=== PATIENT | male | born 1955 | race African-American/Black ===

== ENCOUNTER 2018-03-18 11:38 | Inpatient (IN) | payer MEDICARE, BC ==
[~2018-03-18] VITALS: Ht 193 cm; Wt 52.6 kg
[2018-03-18] MEDS ORDERED: ALBUTEROL (0.083%) 2.5MG/3ML NEB HHN STA (12:25)
[2018-03-18] MEDS ORDERED: ALBUTEROL (0.083%) 2.5MG/3ML NEB ONE (12:48)
[2018-03-18 12:57] LABS: BASOPHILS % 0.3 % (0.0-2.0); EOSINOPHILS % 0.4 % (0.0-5.0); HEMATOCRIT. 42.6 % (42.0-52.0); HEMOGLOBIN. 14.2 g/dL (14.0-18.0); LYMPHOCYTES % 15.6 % (20.0-50.0); MEAN CORPUSCULAR HEMOGLOBIN 29.2 pg (28.0-32.0); MEAN CORPUSCULAR VOLUME 87.8 fL (80.0-94.0); MEAN PLATELET VOLUME 9.2 fl (7.4-10.4); MONOCYTES % 4.9 % (2.0-8.0); NEUTROPHILS % 78.8 % (40.0-76.0); PLATELET 235 x1000/uL (130-400); RED BLOOD CELL COUNT 4.85 mill/uL (4.7-6.1); RED CELL DISTRIBUTION WIDTH 13.5 % (11.6-14.6)
[2018-03-18 13:05] LABS: CHLORIDE 106 mEq/L (98-107)
[2018-03-18 13:18] LABS: PROTHROMBIN TIME 10.5 sec (9.1-11.1)
[2018-03-18] MEDS ORDERED: ASPIRIN 325MG EC TABLET PO ONE (13:45)
[2018-03-18] MEDS: NITROGLYCERIN OINT 1GM/INCH UDPKT TD SCH ×2 (18:30→22:00)
[2018-03-18] MEDS: FUROSEMIDE 40MG/4ML VIAL IVP SCH (18:37)
[2018-03-18 21:00] VITALS: BP 129/77
[2018-03-18] MEDS: ATORVASTATIN CALCIUM 10MG TABLET PO SCH (21:00)
[2018-03-18] MEDS ORDERED: METF-416 MT (21:06)
[2018-03-18] MEDS ORDERED: ASA5EC MT (21:06)
[2018-03-18] MEDS ORDERED: AMLO10TA80 MT (21:06)
[2018-03-18] MEDS ORDERED: AM500 MT (21:06)
[2018-03-18] MEDS ORDERED: FURO40TA5 MT (21:06)
[2018-03-18] MEDS ORDERED: VALS320T16 MT (21:06)
[2018-03-18] MEDS ORDERED: GLYB5TAB7 MT (21:06)
[2018-03-18 21:20] VITALS: BP 129/72
[2018-03-18] MEDS ORDERED: POTA99TA15 PO (22:00)
[2018-03-19] VITALS: BP 142/82
[2018-03-19] MEDS ORDERED: AZITHROMYCIN 500 MG in DEXT 5% WATER 250 ML IV SCH (03:30)
[2018-03-19] MEDS ORDERED: CEFTRIAXONE 1,000 MG in DEXTROSE 5% WATER 50 ML IV SCH (03:30)
[2018-03-19 04:00] VITALS: BP 123/78
[2018-03-19] MEDS: CEFTRIAXONE 1 G PREMIX 50 ML IV SCH (05:32)
[2018-03-19] MEDS: NITROGLYCERIN OINT 1GM/INCH UDPKT TD SCH ×3 (05:35→21:54)
[2018-03-19] MEDS: METFORMIN HCL 500MG TABLET PO SCH ×2 (06:13→18:32)
[2018-03-19 08:00] VITALS: BP 136/93
[2018-03-19 08:37] LABS: BASOPHILS % 0.7 % (0.0-2.0); EOSINOPHILS % 1.6 % (0.0-5.0); HEMATOCRIT. 41.5 % (42.0-52.0); HEMOGLOBIN. 13.9 g/dL (14.0-18.0); LYMPHOCYTES % 18.4 % (20.0-50.0); MEAN CORPUSCULAR VOLUME 86.7 fL (80.0-94.0); MEAN PLATELET VOLUME 9.3 fl (7.4-10.4); NEUTROPHILS % 72.3 % (40.0-76.0); PLATELET 235 x1000/uL (130-400); RED BLOOD CELL COUNT 4.79 mill/uL (4.7-6.1); RED CELL DISTRIBUTION WIDTH 13.6 % (11.6-14.6)
[2018-03-19] MEDS: ASPIRIN 81MG EC TABLET PO SCH (08:39)
[2018-03-19] MEDS: FUROSEMIDE 40MG/4ML VIAL IVP SCH (08:39)
[2018-03-19] MEDS: ENOXAPARIN 30MG/0.3ML SYR SUBCUT SCH ×2 (08:40→21:53)
[2018-03-19] MEDS: AMLODIPINE 5MG TABLET PO SCH (08:40)
[2018-03-19] MEDS: POTASSIUM CHLORIDE 10MEQ TABLET SR PO SCH (08:40)
[2018-03-19 09:02] LABS: CHLORIDE 107 mEq/L (98-107)
[2018-03-19] MEDS: AZITHROMYCIN 500 MG in DEXT 5% WATER 250 ML IV SCH (10:52)
[2018-03-19 14:00] VITALS: BP 113/74
[2018-03-19] MEDS ORDERED: DEXTROSE 50% WATER 50ML SYRINGE IV PRN (17:45)
[2018-03-19] MEDS: FUROSEMIDE 100MG/10ML VIAL IVP SCH (18:32)
[2018-03-19 20:00] VITALS: BP_SYST 126; BP_SYST 132; BP_DIAS 72; BP_DIAS 87
[2018-03-19] MEDS: INSULIN LISPRO 100 UNITS/ML SUBCUT SCH (21:00)
[2018-03-19] MEDS: ATORVASTATIN CALCIUM 10MG TABLET PO SCH (21:54)
[2018-03-19] MEDS: BLOOD SUGAR DIAGNOSTIC STRIP TEST SCH (21:55)
[2018-03-20] VITALS (7 sets, daily range): BP systolic 110–132; BP diastolic 66–90
[2018-03-20] MEDS: CEFTRIAXONE 1 G PREMIX 50 ML IV SCH (04:34)
[2018-03-20] MEDS: NITROGLYCERIN OINT 1GM/INCH UDPKT TD SCH ×3 (04:40→22:32)
[2018-03-20] MEDS: BLOOD SUGAR DIAGNOSTIC STRIP TEST SCH ×4 (04:42→21:00)
[2018-03-20 06:47] LABS: BASOPHILS % 0.7 % (0.0-2.0); HEMATOCRIT. 41.1 % (42.0-52.0); HEMOGLOBIN. 13.9 g/dL (14.0-18.0); LYMPHOCYTES % 27.2 % (20.0-50.0); MEAN CORPUSCULAR HEMOGLOBIN 29.4 pg (28.0-32.0); MEAN CORPUSCULAR VOLUME 87.3 fL (80.0-94.0); MEAN PLATELET VOLUME 9.3 fl (7.4-10.4); MONOCYTES % 8.2 % (2.0-8.0); NEUTROPHILS % 61.9 % (40.0-76.0); PLATELET 244 x1000/uL (130-400); RED BLOOD CELL COUNT 4.71 mill/uL (4.7-6.1); RED CELL DISTRIBUTION WIDTH 13.4 % (11.6-14.6)
[2018-03-20 07:11] LABS: CHLORIDE 107 mEq/L (98-107)
[2018-03-20] MEDS: INSULIN LISPRO 100 UNITS/ML SUBCUT SCH ×4 (07:40→22:45)
[2018-03-20] MEDS: METFORMIN HCL 500MG TABLET PO SCH ×2 (08:33→17:25)
[2018-03-20] MEDS: ASPIRIN 81MG EC TABLET PO SCH (08:33)
[2018-03-20] MEDS: AMLODIPINE 5MG TABLET PO SCH (08:33)
[2018-03-20] MEDS: ENOXAPARIN 30MG/0.3ML SYR SUBCUT SCH ×2 (08:34→22:32)
[2018-03-20] MEDS: FUROSEMIDE 100MG/10ML VIAL IVP SCH ×2 (08:36→17:38)
[2018-03-20] MEDS: AZITHROMYCIN 500 MG in DEXT 5% WATER 250 ML IV SCH (08:36)
[2018-03-20] MEDS: POTASSIUM CHLORIDE 10MEQ TABLET SR PO SCH (08:38)
[2018-03-20] MEDS: ATORVASTATIN CALCIUM 10MG TABLET PO SCH (22:33)
[2018-03-21 04:00] VITALS: BP 124/69
[2018-03-21] MEDS: CEFTRIAXONE 1 G PREMIX 50 ML IV SCH (05:25)
[2018-03-21] MEDS: FUROSEMIDE 100MG/10ML VIAL IVP SCH (06:39)
[2018-03-21] MEDS: BLOOD SUGAR DIAGNOSTIC STRIP TEST SCH ×2 (06:48→11:40)
[2018-03-21] MEDS: INSULIN LISPRO 100 UNITS/ML SUBCUT SCH ×2 (06:48→13:00)
[2018-03-21] MEDS: NITROGLYCERIN OINT 1GM/INCH UDPKT TD SCH ×2 (06:52→12:58)
[2018-03-21 08:00] VITALS: BP 121/70
[2018-03-21] MEDS: METFORMIN HCL 500MG TABLET PO SCH (08:49)
[2018-03-21] MEDS: POTASSIUM CHLORIDE 10MEQ TABLET SR PO SCH (08:49)
[2018-03-21] MEDS: AMLODIPINE 5MG TABLET PO SCH (08:49)
[2018-03-21] MEDS: ASPIRIN 81MG EC TABLET PO SCH (08:50)
[2018-03-21] MEDS: AZITHROMYCIN 500 MG in DEXT 5% WATER 250 ML IV SCH (08:50)
[2018-03-21] MEDS: ENOXAPARIN 30MG/0.3ML SYR SUBCUT SCH (08:50)
[2018-03-21 09:44] LABS: BASOPHILS % 0.4 % (0.0-2.0); EOSINOPHILS % 0.7 % (0.0-5.0); HEMATOCRIT. 42.5 % (42.0-52.0); HEMOGLOBIN. 14.2 g/dL (14.0-18.0); LYMPHOCYTES % 12.9 % (20.0-50.0); MEAN CORPUSCULAR VOLUME 87.1 fL (80.0-94.0); MEAN PLATELET VOLUME 8.7 fl (7.4-10.4); MONOCYTES % 7.6 % (2.0-8.0); NEUTROPHILS % 78.4 % (40.0-76.0); PLATELET 274 x1000/uL (130-400); RED BLOOD CELL COUNT 4.88 mill/uL (4.7-6.1); RED CELL DISTRIBUTION WIDTH 13.5 % (11.6-14.6)
[2018-03-21 10:12] LABS: CHLORIDE 105 mEq/L (98-107)
[2018-03-21 11:52] VITALS: BP 145/63
[2018-03-21 12:00] VITALS: BP 132/86
[2018-03-21 15:33] VITALS: BP 132/80
[2018-03-21 16:00] VITALS: BP 122/80
[2018-03-22] MEDS ORDERED: AZITHROMYCIN 500 MG TABLET PO SCH (08:00)
== END 2018-03-21 16:33 | disposition home or self-care (01) | DRG 291 ==
LOC: ER 11:38 → EDBEDREQ 13:52 → EDBEDREQTM 13:52 → ENRESERV 19:37 → 8WST 20:07
PROVIDERS: ADMIT Internal Medicine; ATTEND Internal Medicine
DX: I13.0 Hypertensive heart and chronic kidney disease with heart failure and stage 1 through stage 4 chronic kidney disease, or unspecified chronic kidney disease (principal); I50.23 Acute on chronic systolic (congestive) heart failure; I47.2 Ventricular tachycardia; I42.9 Cardiomyopathy, unspecified; E11.40 Type 2 diabetes mellitus with diabetic neuropathy, unspecified; M54.30 Sciatica, unspecified side; I34.0 Nonrheumatic mitral (valve) insufficiency; E11.22 Type 2 diabetes mellitus with diabetic chronic kidney disease; N18.9 Chronic kidney disease, unspecified; E78.5 Hyperlipidemia, unspecified; I25.10 Atherosclerotic heart disease of native coronary artery without angina pectoris; I25.2 Old myocardial infarction; Z79.4 Long term (current) use of insulin; Z79.899 Other long term (current) drug therapy; Z85.72 Personal history of non-Hodgkin lymphomas; Z95.1 Presence of aortocoronary bypass graft
CPT/HCPCS: 36415; 71045; 71250; 80048; 82962; 83605; 83735; 83880; 84100; 84484; 85651; 87070; 87804; 93005; 93306; 94002; 97162; 97165; 99291; J0456; J0696; J1650; J1815; J1940; J7050; J7060; J7611

== ENCOUNTER 2018-05-15 14:54 | Inpatient (IN) | payer MEDICARE, BC ==
[~2018-05-15] VITALS: Ht 195.6 cm; Wt 104.8 kg
[~2018-05-15 14:54] MED LIST: AM500 MT; AMLO10TA80 MT; ASA5EC MT; FURO40TA5 MT; GLYB5TAB7 MT; METF-416 MT; POTA99TA15 PO; VALS320T16 MT
[2018-05-15 17:24] LABS: BASOPHILS % 0.5 % (0.0-2.0); EOSINOPHILS % 0.2 % (0.0-5.0); HEMATOCRIT. 43.7 % (42.0-52.0); HEMOGLOBIN. 14.4 g/dL (14.0-18.0); LYMPHOCYTES % 11.3 % (20.0-50.0); MEAN CORPUSCULAR HEMOGLOBIN 28.8 pg (28.0-32.0); MEAN CORPUSCULAR VOLUME 87.4 fL (80.0-94.0); MEAN PLATELET VOLUME 9.2 fl (7.4-10.4); MONOCYTES % 4.8 % (2.0-8.0); NEUTROPHILS % 83.2 % (40.0-76.0); PLATELET 220 x1000/uL (130-400)
[2018-05-15 17:28] LABS: CHLORIDE 106 mEq/L (98-107)
[2018-05-15 18:01] LABS: CLARITY URINE CLEAR (CLEAR); COLOR URINE YELLOW (YELLOW); KETONES URINE NEGATIVE (NEGATIVE); LEUKOCYTE ESTERASE URINE NEGATIVE (NEGATIVE); NITRITE URINE NEGATIVE (NEGATIVE); OCCULT BLOOD URINE NEGATIVE (NEGATIVE); PROTEIN URINE TRACE (NEGATIVE); SPECIFIC GRAVITY URINE 1.014 (1.005-1.030); UROBILINOGEN URINE 0.2 E.U./dL (0.2-1.0)
[2018-05-15 18:14] LABS: *AMPHETAMINES SCREEN URINE NEGATIVE (NEGATIVE); *BARBITURATES SCREEN URINE NEGATIVE (NEGATIVE); *BENZODIAZEPINES SCREEN URINE NEGATIVE (NEGATIVE); *COCAINE SCREEN URINE NEGATIVE (NEGATIVE); METHADONE URINE SCREEN NEGATIVE (NEGATIVE)
[2018-05-15 18:15] LABS: CANNABINOID URINE SCREEN NEGATIVE (NEGATIVE); OPIATES URINE SCREEN NEGATIVE (NEGATIVE); PHENCYCLIDINE URINE SCREEN NEGATIVE (NEGATIVE)
[2018-05-15] MEDS ORDERED: MORPHINE SULFATE 4 MG/ML CPJ (NOT FOR IM USE) IV ONE (20:30)
[2018-05-15] MEDS ORDERED: FUROSEMIDE 20MG/2ML VIAL IVP ONE (20:30)
[2018-05-15] MEDS ORDERED: EZET10TA26 MT (21:56)
[2018-05-15] MEDS ORDERED: HYDRALAZINE 20MG/ML VIAL IV ONE (22:15)
[2018-05-15] MEDS ORDERED: MAGNESIUM/ALUMINUM HYDROXIDE/SIMETHICONE 30ML UDC PO PRN (23:30)
[2018-05-15] MEDS ORDERED: DEXTROSE 50% WATER 50ML SYRINGE IV PRN (23:30)
[2018-05-15] MEDS ORDERED: ACETAMINOPHEN 325MG TABLET PO PRN (23:30)
[2018-05-15] MEDS ORDERED: ONDANSETRON HCL 4MG/2ML INJ IV PRN (23:30)
[2018-05-15] MEDS ORDERED: CLONIDINE 0.1MG TABLET PO PRN (23:30)
[2018-05-15] MEDS ORDERED: IPRATROPIUM/ALBUTEROL 0.5-3(2.5)MG/3ML NEB INH PRN (23:30)
[2018-05-15] MEDS ORDERED: ACETAMINOPHEN WITH CODEINE 300/30MG TABLET PO PRN (23:45)
[2018-05-16] MEDS ORDERED: HYDRALAZINE HCL 50MG TABLET PO SCH (00:03)
[2018-05-16] MEDS ORDERED: METFORMIN HCL 500MG TABLET PO SCH (00:03)
[2018-05-16] MEDS ORDERED: GLYBURIDE 5MG TABLET PO SCH (00:04)
[2018-05-16] MEDS ORDERED: MORPHINE SULFATE 4 MG/ML CPJ (NOT FOR IM USE) IV SCH (02:15)
[2018-05-16 02:50] VITALS: BP 138/91
[2018-05-16] MEDS ORDERED: ENOXAPARIN 100MG/ML SYR SUBCUT SCH (03:00)
[2018-05-16 04:00] VITALS: BP 128/62
[2018-05-16] MEDS ORDERED: HYDR-4135 PO (04:06)
[2018-05-16] MEDS ORDERED: ACETAMINOPHEN 325MG TABLET PO PRN (05:00)
[2018-05-16] MEDS ORDERED: MORPHINE SULFATE 4 MG/ML CPJ (NOT FOR IM USE) IV PRN (05:00)
[2018-05-16] MEDS ORDERED: HYDROMORPHONE HCL/PF 2MG/ML CPJ IV PRN (05:00)
[2018-05-16] MEDS ORDERED: SODIUM CHLORIDE 0.9% INJ 3ML FLUSH IVF SCH (06:00)
[2018-05-16] MEDS: HYDRALAZINE HCL 50MG TABLET PO SCH ×3 (06:31→22:54)
[2018-05-16] MEDS ORDERED: BLOOD SUGAR DIAGNOSTIC STRIP TEST SCH (07:20)
[2018-05-16] MEDS ORDERED: DEXTROSE 50% WATER 50ML SYRINGE IV PRN (07:30)
[2018-05-16] MEDS ORDERED: INSULIN LISPRO 100 UNITS/ML SUBCUT SCH (07:50)
[2018-05-16] MEDS: INSULIN LISPRO 100 UNITS/ML SUBCUT SCH ×4 (07:50→21:37)
[2018-05-16 08:00] VITALS: BP 130/80
[2018-05-16] MEDS ORDERED: ENOXAPARIN 40MG/0.4ML SYR SUBCUT SCH (09:00)
[2018-05-16] MEDS ORDERED: ENOXAPARIN 30MG/0.3ML SYR SUBCUT SCH (09:00)
[2018-05-16] MEDS ORDERED: FUROSEMIDE 40MG/4ML VIAL IVP SCH (09:00)
[2018-05-16] MEDS ORDERED: AMLODIPINE 10MG TABLET PO SCH (09:00)
[2018-05-16] MEDS ORDERED: EZETIMIBE 10MG TABLET PO SCH (09:00)
[2018-05-16] MEDS ORDERED: POTASSIUM CHLORIDE 20MEQ TABLET SR PO SCH (09:00)
[2018-05-16] MEDS: EZETIMIBE 10MG TABLET PO SCH (09:49)
[2018-05-16] MEDS: AMLODIPINE 10MG TABLET PO SCH (09:49)
[2018-05-16] MEDS: FUROSEMIDE 40MG TABLET PO SCH (09:49)
[2018-05-16] MEDS ORDERED: ONDANSETRON HCL 4MG/2ML INJ IV NR (10:15)
[2018-05-16 12:00] VITALS: BP 137/85
[2018-05-16] MEDS: BLOOD SUGAR DIAGNOSTIC STRIP TEST SCH ×3 (12:20→21:30)
[2018-05-16] MEDS ORDERED: ENOXAPARIN 80MG/0.8ML SYR SUBCUT SCH (13:00)
[2018-05-16] MEDS ORDERED: AZITHROMYCIN 500 MG TABLET PO NR (15:15)
[2018-05-16 16:00] VITALS: BP 120/60
[2018-05-16 20:00] VITALS: BP 114/77
[2018-05-16] MEDS: ENOXAPARIN 100MG/ML SYR SUBCUT SCH (21:30)
[2018-05-16] MEDS: METOPROLOL TARTRATE 25MG TABLET PO SCH (21:32)
[2018-05-17] VITALS: BP 126/72
[2018-05-17 04:00] VITALS: BP 123/73
[2018-05-17] MEDS: HYDRALAZINE HCL 50MG TABLET PO SCH ×3 (06:10→22:00)
[2018-05-17] MEDS: BLOOD SUGAR DIAGNOSTIC STRIP TEST SCH ×4 (06:11→21:49)
[2018-05-17 07:13] LABS: INR 1.1; PROTHROMBIN TIME 10.8 sec (9.1-11.1)
[2018-05-17 07:30] LABS: CHLORIDE 107 mEq/L (98-107)
[2018-05-17 07:33] LABS: BASOPHILS % 0.8 % (0.0-2.0); EOSINOPHILS % 1.5 % (0.0-5.0); HEMATOCRIT. 40.6 % (42.0-52.0); HEMOGLOBIN. 13.5 g/dL (14.0-18.0); LYMPHOCYTES % 26.9 % (20.0-50.0); MEAN CORPUSCULAR HEMOGLOBIN 28.7 pg (28.0-32.0); MEAN CORPUSCULAR VOLUME 86.1 fL (80.0-94.0); MEAN PLATELET VOLUME 8.6 fl (7.4-10.4); MONOCYTES % 7.7 % (2.0-8.0); NEUTROPHILS % 63.1 % (40.0-76.0); PLATELET 221 x1000/uL (130-400); RED BLOOD CELL COUNT 4.72 mill/uL (4.7-6.1); RED CELL DISTRIBUTION WIDTH 13.6 % (11.6-14.6)
[2018-05-17 07:40] LABS: PHOSPHORUS 3.2 mg/dL (2.5-4.9)
[2018-05-17] MEDS: INSULIN LISPRO 100 UNITS/ML SUBCUT SCH ×4 (07:50→21:49)
[2018-05-17 08:00] VITALS: BP 116/68
[2018-05-17] MEDS ORDERED: POTASSIUM CHLORIDE 20MEQ/PACKET PO SCH (08:30)
[2018-05-17] MEDS: FUROSEMIDE 40MG TABLET PO SCH (10:01)
[2018-05-17] MEDS: AMLODIPINE 10MG TABLET PO SCH (10:01)
[2018-05-17] MEDS: ENOXAPARIN 100MG/ML SYR SUBCUT SCH ×2 (10:01→21:42)
[2018-05-17] MEDS: EZETIMIBE 10MG TABLET PO SCH (10:01)
[2018-05-17] MEDS: METOPROLOL TARTRATE 25MG TABLET PO SCH ×2 (10:02→21:42)
[2018-05-17] MEDS ORDERED: MAGNESIUM HYDROXIDE 400MG/5ML 30ML UDC PO PRN (12:00)
[2018-05-17] MEDS ORDERED: LACTULOSE 20G/30ML UDC PO NR (12:00)
[2018-05-17] MEDS: DOCUSATE SODIUM 250MG CAPSULE PO SCH (12:37)
[2018-05-17 16:26] VITALS: BP 106/72
[2018-05-18] VITALS: BP 110/76
[2018-05-18] MEDS: BLOOD SUGAR DIAGNOSTIC STRIP TEST SCH ×2 (06:34→12:20)
[2018-05-18] MEDS: HYDRALAZINE HCL 50MG TABLET PO SCH ×2 (06:35→14:05)
[2018-05-18 07:02] LABS: BASOPHILS % 0.9 % (0.0-2.0); EOSINOPHILS % 1.7 % (0.0-5.0); HEMOGLOBIN. 12.9 g/dL (14.0-18.0); LYMPHOCYTES % 30.8 % (20.0-50.0); MEAN CORPUSCULAR HEMOGLOBIN 28.5 pg (28.0-32.0); MEAN CORPUSCULAR VOLUME 86.5 fL (80.0-94.0); MEAN PLATELET VOLUME 8.9 fl (7.4-10.4); MONOCYTES % 8.2 % (2.0-8.0); NEUTROPHILS % 58.4 % (40.0-76.0); PLATELET 205 x1000/uL (130-400); RED BLOOD CELL COUNT 4.51 mill/uL (4.7-6.1); RED CELL DISTRIBUTION WIDTH 13.6 % (11.6-14.6)
[2018-05-18 07:48] LABS: CHLORIDE 108 mEq/L (98-107)
[2018-05-18 08:00] VITALS: BP 127/88
[2018-05-18] MEDS: EZETIMIBE 10MG TABLET PO SCH (08:48)
[2018-05-18] MEDS: DOCUSATE SODIUM 250MG CAPSULE PO SCH (08:48)
[2018-05-18] MEDS: METOPROLOL TARTRATE 25MG TABLET PO SCH (08:49)
[2018-05-18] MEDS: AMLODIPINE 10MG TABLET PO SCH (08:49)
[2018-05-18] MEDS: FUROSEMIDE 40MG TABLET PO SCH (08:49)
[2018-05-18] MEDS: ENOXAPARIN 100MG/ML SYR SUBCUT SCH (08:50)
[2018-05-18 11:32] VITALS: BP_SYST 108; BP_SYST 127; BP_DIAS 88
[2018-05-18 12:00] VITALS: BP 128/88
[2018-05-18] MEDS: INSULIN LISPRO 100 UNITS/ML SUBCUT SCH (13:37)
[2018-05-18 16:00] VITALS: BP 108/62
== END 2018-05-18 16:42 | disposition home or self-care (01) | DRG 64 ==
LOC: ER 14:54 → 6WST 21:30 → EDBEDREQ 05-16 00:01 → EDBEDREQTM 05-16 00:01 → EDBEDREQSVC 05-16 00:12 → ENRESERV 05-16 01:34
PROVIDERS: ADMIT Internal Medicine; ATTEND Internal Medicine
PROC: 4A00X4Z Measurement of Central Nervous Electrical Activity, External Approach (ICD-10-PCS; principal; 2018-05-18)
DX: I63.9 Cerebral infarction, unspecified (principal); I50.43 Acute on chronic combined systolic (congestive) and diastolic (congestive) heart failure; I13.0 Hypertensive heart and chronic kidney disease with heart failure and stage 1 through stage 4 chronic kidney disease, or unspecified chronic kidney disease; I47.2 Ventricular tachycardia; G43.909 Migraine, unspecified, not intractable, without status migrainosus; H53.2 Diplopia; I48.91 Unspecified atrial fibrillation; H53.47 Heteronymous bilateral field defects; Z95.1 Presence of aortocoronary bypass graft; N18.2 Chronic kidney disease, stage 2 (mild); J20.9 Acute bronchitis, unspecified; E11.22 Type 2 diabetes mellitus with diabetic chronic kidney disease; E78.5 Hyperlipidemia, unspecified; E87.6 Hypokalemia; I25.10 Atherosclerotic heart disease of native coronary artery without angina pectoris; E78.00 Pure hypercholesterolemia, unspecified; D63.8 Anemia in other chronic diseases classified elsewhere; I49.3 Ventricular premature depolarization; I25.2 Old myocardial infarction; Z79.01 Long term (current) use of anticoagulants; Z79.899 Other long term (current) drug therapy; Z82.49 Family history of ischemic heart disease and other diseases of the circulatory system; Z83.3 Family history of diabetes mellitus; Z85.72 Personal history of non-Hodgkin lymphomas; Z85.819 Personal history of malignant neoplasm of unspecified site of lip, oral cavity, and pharynx; Z91.19 Patient's noncompliance with other medical treatment and regimen; Z88.8 Allergy status to other drugs, medicaments and biological substances; Z79.82 Long term (current) use of aspirin; Z79.84 Long term (current) use of oral hypoglycemic drugs
CPT/HCPCS: 36415; 70551; 71045; 80048; 80061; 80305; 82962; 83036; 83735; 83880; 84100; 84484; 85651; 93005; 93306; 93880; 96374; 96375; 97162; 99285; J0360; J1650; J1815; J1940; J2270

== ENCOUNTER 2018-05-26 21:58 | Inpatient (IN) | payer MEDICARE, BC ==
[~2018-05-26] VITALS: Ht 195.6 cm; Wt 97.7 kg
[~2018-05-26 21:58] MED LIST changes: -ASA5EC MT; +EZET10TA26 MT; -POTA99TA15 PO; -VALS320T16 MT
[2018-05-27 00:56] LABS: CHLORIDE 110 mEq/L (98-107)
[2018-05-27 01:08] LABS: BASOPHILS % 0.3 % (0.0-2.0); EOSINOPHILS % 0.5 % (0.0-5.0); HEMATOCRIT. 37.9 % (42.0-52.0); HEMOGLOBIN. 12.4 g/dL (14.0-18.0); LYMPHOCYTES % 19.7 % (20.0-50.0); MEAN CORPUSCULAR HEMOGLOBIN 28.6 pg (28.0-32.0); MEAN CORPUSCULAR VOLUME 87.1 fL (80.0-94.0); MEAN PLATELET VOLUME 9.7 fl (7.4-10.4); MONOCYTES % 8.1 % (2.0-8.0); NEUTROPHILS % 71.4 % (40.0-76.0); PLATELET 178 x1000/uL (130-400); RED BLOOD CELL COUNT 4.34 mill/uL (4.7-6.1); RED CELL DISTRIBUTION WIDTH 14.2 % (11.6-14.6)
[2018-05-27] MEDS ORDERED: FUROSEMIDE 40MG TABLET PO NR (03:45)
[2018-05-27] MEDS ORDERED: MECLIZINE 25MG TABLET PO NR (03:45)
[2018-05-27] MEDS ORDERED: FUROSEMIDE 40MG/4ML VIAL IV NR (04:30)
[2018-05-27 17:32] VITALS: BP 144/89
[2018-05-27 17:48] VITALS: BP 144/89
[2018-05-27 18:00] VITALS: BP 142/93
[2018-05-27 19:00] VITALS: BP 127/97
[2018-05-27 20:00] VITALS: BP 155/80
[2018-05-27] MEDS ORDERED: ONDANSETRON HCL 4MG/2ML INJ IV PRN (20:45)
[2018-05-27] MEDS ORDERED: ZOLPIDEM TARTRATE 5MG TABLET PO PRN (20:45)
[2018-05-27] MEDS ORDERED: ACETAMINOPHEN 325MG TABLET PO PRN (20:45)
[2018-05-27] MEDS ORDERED: DEXTROSE 50% WATER 50ML SYRINGE IV PRN (20:45)
[2018-05-27] MEDS: BLOOD SUGAR DIAGNOSTIC STRIP TEST SCH (21:00)
[2018-05-27] MEDS ORDERED: MECLIZINE 25MG TABLET PO PRN (21:00)
[2018-05-27] MEDS: METOPROLOL TARTRATE 50MG TABLET PO SCH (21:26)
[2018-05-27 22:00] VITALS: BP 129/96
[2018-05-28] VITALS (12 sets, daily range): BP systolic 129–158; BP diastolic 67–107
[2018-05-28 07:01] LABS: BASOPHILS % 0.4 % (0.0-2.0); EOSINOPHILS % 0.6 % (0.0-5.0); HEMATOCRIT. 38.7 % (42.0-52.0); LYMPHOCYTES % 14.5 % (20.0-50.0); MEAN CORPUSCULAR HEMOGLOBIN 29.1 pg (28.0-32.0); MEAN CORPUSCULAR VOLUME 86.7 fL (80.0-94.0); MEAN PLATELET VOLUME 10.2 fl (7.4-10.4); MONOCYTES % 7.1 % (2.0-8.0); NEUTROPHILS % 77.4 % (40.0-76.0); PLATELET 171 x1000/uL (130-400); RED BLOOD CELL COUNT 4.46 mill/uL (4.7-6.1); RED CELL DISTRIBUTION WIDTH 13.8 % (11.6-14.6)
[2018-05-28 07:24] LABS: CHLORIDE 111 mEq/L (98-107)
[2018-05-28] MEDS: INSULIN LISPRO 100 UNITS/ML SUBCUT SCH ×4 (08:00→21:23)
[2018-05-28] MEDS: BLOOD SUGAR DIAGNOSTIC STRIP TEST SCH ×4 (08:23→21:00)
[2018-05-28] MEDS: METOPROLOL TARTRATE 50MG TABLET PO SCH (08:24)
[2018-05-28] MEDS: GLYBURIDE 5MG TABLET PO SCH ×2 (08:24→17:46)
[2018-05-28] MEDS: AMLODIPINE 5MG TABLET PO SCH (08:25)
[2018-05-28] MEDS ORDERED: FUROSEMIDE 40MG/4ML VIAL IVP NR (08:30)
[2018-05-28] MEDS ORDERED: DILTIAZEM HCL 5MG/ML 5ML VIAL IV PRN (08:45)
[2018-05-28] MEDS ORDERED: CARVEDILOL 6.25 MG TABLET PO SCH (09:00)
[2018-05-28] MEDS ORDERED: FUROSEMIDE 40MG/4ML VIAL IVP SCH (09:00)
[2018-05-28] MEDS ORDERED: DIGOXIN 500MCG/2ML AMP IV NR ×3 (09:00→21:00)
[2018-05-28] MEDS: POTASSIUM CHLORIDE 20MEQ TABLET SR PO SCH (09:17)
[2018-05-28] MEDS: APIXABAN 5 MG TABLET PO SCH ×2 (10:49→17:46)
[2018-05-28] MEDS: HYDRALAZINE HCL 50MG TABLET PO SCH ×2 (13:34→21:11)
[2018-05-28] MEDS: FUROSEMIDE 40MG/4ML VIAL IVP SCH (17:46)
[2018-05-28] MEDS ORDERED: CARVEDILOL 6.25 MG TABLET PO ONE (21:00)
[2018-05-28] MEDS: CARVEDILOL 6.25 MG TABLET PO SCH (21:11)
[2018-05-29] VITALS (13 sets, daily range): BP systolic 125–149; BP diastolic 56–92
[2018-05-29 05:55] LABS: BASOPHILS % 0.5 % (0.0-2.0); EOSINOPHILS % 1.2 % (0.0-5.0); HEMATOCRIT. 40.1 % (42.0-52.0); HEMOGLOBIN. 13.1 g/dL (14.0-18.0); LYMPHOCYTES % 16.6 % (20.0-50.0); MEAN CORPUSCULAR HEMOGLOBIN 28.7 pg (28.0-32.0); MEAN CORPUSCULAR VOLUME 87.6 fL (80.0-94.0); MEAN PLATELET VOLUME 10.3 fl (7.4-10.4); MONOCYTES % 8.2 % (2.0-8.0); NEUTROPHILS % 73.5 % (40.0-76.0); PLATELET 181 x1000/uL (130-400); RED BLOOD CELL COUNT 4.58 mill/uL (4.7-6.1)
[2018-05-29 06:19] LABS: CHLORIDE 110 mEq/L (98-107)
[2018-05-29] MEDS: FUROSEMIDE 40MG/4ML VIAL IVP SCH ×2 (06:48→17:25)
[2018-05-29] MEDS: GLYBURIDE 5MG TABLET PO SCH ×2 (06:48→17:26)
[2018-05-29] MEDS: HYDRALAZINE HCL 50MG TABLET PO SCH ×3 (06:48→22:55)
[2018-05-29] MEDS: INSULIN LISPRO 100 UNITS/ML SUBCUT SCH ×4 (08:00→22:53)
[2018-05-29] MEDS: BLOOD SUGAR DIAGNOSTIC STRIP TEST SCH ×4 (08:29→21:15)
[2018-05-29] MEDS: POTASSIUM CHLORIDE 20MEQ TABLET SR PO SCH (09:05)
[2018-05-29] MEDS: APIXABAN 5 MG TABLET PO SCH ×2 (09:05→17:26)
[2018-05-29] MEDS: AMLODIPINE 5MG TABLET PO SCH (09:09)
[2018-05-29] MEDS: CARVEDILOL 6.25 MG TABLET PO SCH ×2 (09:09→21:00)
[2018-05-29] MEDS: DIGOXIN 250MCG TABLET PO SCH (17:26)
[2018-05-30] VITALS (15 sets, daily range): BP systolic 106–166; BP diastolic 63–87
[2018-05-30] MEDS: HYDRALAZINE HCL 50MG TABLET PO SCH ×3 (06:25→21:17)
[2018-05-30 07:48] LABS: BASOPHILS % 0.6 % (0.0-2.0); HEMOGLOBIN. 13.4 g/dL (14.0-18.0); LYMPHOCYTES % 18.8 % (20.0-50.0); MEAN CORPUSCULAR HEMOGLOBIN 28.5 pg (28.0-32.0); MEAN CORPUSCULAR VOLUME 87.3 fL (80.0-94.0); MEAN PLATELET VOLUME 9.3 fl (7.4-10.4); MONOCYTES % 9.7 % (2.0-8.0); NEUTROPHILS % 68.9 % (40.0-76.0); PLATELET 216 x1000/uL (130-400); RED BLOOD CELL COUNT 4.69 mill/uL (4.7-6.1); RED CELL DISTRIBUTION WIDTH 13.9 % (11.6-14.6)
[2018-05-30 07:58] LABS: CHLORIDE 112 mEq/L (98-107)
[2018-05-30] MEDS: BLOOD SUGAR DIAGNOSTIC STRIP TEST SCH ×4 (08:03→21:10)
[2018-05-30] MEDS: INSULIN LISPRO 100 UNITS/ML SUBCUT SCH ×4 (08:09→21:44)
[2018-05-30] MEDS: GLYBURIDE 5MG TABLET PO SCH ×2 (08:42→18:21)
[2018-05-30] MEDS: APIXABAN 5 MG TABLET PO SCH ×2 (08:42→18:21)
[2018-05-30] MEDS: FUROSEMIDE 40MG/4ML VIAL IVP SCH ×2 (08:42→18:21)
[2018-05-30] MEDS: AMLODIPINE 5MG TABLET PO SCH (08:43)
[2018-05-30] MEDS: CARVEDILOL 6.25 MG TABLET PO SCH ×2 (08:43→21:16)
[2018-05-30] MEDS: POTASSIUM CHLORIDE 20MEQ TABLET SR PO SCH (08:43)
[2018-05-30] MEDS ORDERED: LACTULOSE 20G/30ML UDC PO NR (10:45)
[2018-05-30] MEDS ORDERED: POTASSIUM CHLORIDE 20MEQ/PACKET PO NR (12:45)
[2018-05-30] MEDS: DIGOXIN 250MCG TABLET PO SCH (18:21)
[2018-05-31] VITALS (12 sets, daily range): BP systolic 113–155; BP diastolic 59–89
[2018-05-31 06:04] LABS: BASOPHILS % 0.9 % (0.0-2.0); EOSINOPHILS % 3.2 % (0.0-5.0); HEMATOCRIT. 41.8 % (42.0-52.0); HEMOGLOBIN. 13.9 g/dL (14.0-18.0); LYMPHOCYTES % 20.9 % (20.0-50.0); MEAN CORPUSCULAR HEMOGLOBIN 28.8 pg (28.0-32.0); MEAN CORPUSCULAR VOLUME 86.5 fL (80.0-94.0); MEAN PLATELET VOLUME 8.9 fl (7.4-10.4); PLATELET 221 x1000/uL (130-400); RED BLOOD CELL COUNT 4.83 mill/uL (4.7-6.1); RED CELL DISTRIBUTION WIDTH 14.2 % (11.6-14.6)
[2018-05-31 06:17] LABS: CHLORIDE 109 mEq/L (98-107)
[2018-05-31] MEDS: HYDRALAZINE HCL 50MG TABLET PO SCH ×3 (06:31→22:22)
[2018-05-31] MEDS: FUROSEMIDE 40MG/4ML VIAL IVP SCH ×2 (06:31→17:02)
[2018-05-31] MEDS: GLYBURIDE 5MG TABLET PO SCH ×2 (06:31→18:04)
[2018-05-31] MEDS: BLOOD SUGAR DIAGNOSTIC STRIP TEST SCH ×4 (06:40→20:42)
[2018-05-31] MEDS: INSULIN LISPRO 100 UNITS/ML SUBCUT SCH ×5 (08:00→20:49)
[2018-05-31] MEDS: APIXABAN 5 MG TABLET PO SCH ×2 (08:55→17:02)
[2018-05-31] MEDS: POTASSIUM CHLORIDE 20MEQ TABLET SR PO SCH (08:55)
[2018-05-31] MEDS: AMLODIPINE 5MG TABLET PO SCH (08:55)
[2018-05-31] MEDS: CARVEDILOL 6.25 MG TABLET PO SCH ×2 (08:56→21:12)
[2018-05-31] MEDS ORDERED: LACTULOSE 20G/30ML UDC PO PRN (09:00)
[2018-05-31] MEDS: DOCUSATE SODIUM 100MG CAPSULE PO SCH (17:02)
[2018-05-31] MEDS: DIGOXIN 250MCG TABLET PO SCH (18:04)
[2018-06-01] VITALS (10 sets, daily range): BP systolic 121–139; BP diastolic 62–87
[2018-06-01] MEDS: FUROSEMIDE 40MG/4ML VIAL IVP SCH (06:46)
[2018-06-01] MEDS: HYDRALAZINE HCL 50MG TABLET PO SCH ×2 (06:46→14:00)
[2018-06-01] MEDS: BLOOD SUGAR DIAGNOSTIC STRIP TEST SCH ×2 (07:30→12:30)
[2018-06-01] MEDS: INSULIN LISPRO 100 UNITS/ML SUBCUT SCH ×2 (08:00→13:00)
[2018-06-01] MEDS: GLYBURIDE 5MG TABLET PO SCH (08:32)
[2018-06-01] MEDS: CARVEDILOL 6.25 MG TABLET PO SCH (08:32)
[2018-06-01] MEDS: POTASSIUM CHLORIDE 20MEQ TABLET SR PO SCH (08:32)
[2018-06-01] MEDS: APIXABAN 5 MG TABLET PO SCH (08:32)
[2018-06-01] MEDS: DOCUSATE SODIUM 100MG CAPSULE PO SCH (08:32)
[2018-06-01] MEDS: AMLODIPINE 5MG TABLET PO SCH (08:32)
[2018-06-01] MEDS ORDERED: FUROSEMIDE 40MG TABLET PO SCH (21:00)
== END 2018-06-01 17:00 | DRG 291 ==
LOC: ER 21:58 → 5EST 05-27 03:43 → EDBEDREQSVC 05-27 15:29 → ENRESERV 05-27 15:54
PROVIDERS: ADMIT Internal Medicine; ATTEND Internal Medicine
DX: I13.0 Hypertensive heart and chronic kidney disease with heart failure and stage 1 through stage 4 chronic kidney disease, or unspecified chronic kidney disease (principal); I50.43 Acute on chronic combined systolic (congestive) and diastolic (congestive) heart failure; I48.92 Unspecified atrial flutter; I48.91 Unspecified atrial fibrillation; I25.5 Ischemic cardiomyopathy; E78.5 Hyperlipidemia, unspecified; J40 Bronchitis, not specified as acute or chronic; N18.2 Chronic kidney disease, stage 2 (mild); E11.22 Type 2 diabetes mellitus with diabetic chronic kidney disease; E87.6 Hypokalemia; H53.40 Unspecified visual field defects; I25.10 Atherosclerotic heart disease of native coronary artery without angina pectoris; I34.0 Nonrheumatic mitral (valve) insufficiency; H53.8 Other visual disturbances; H57.11 Ocular pain, right eye; I49.3 Ventricular premature depolarization; I50.9 Heart failure, unspecified; K44.9 Diaphragmatic hernia without obstruction or gangrene; R26.0 Ataxic gait; K57.30 Diverticulosis of large intestine without perforation or abscess without bleeding; K59.00 Constipation, unspecified; K76.1 Chronic passive congestion of liver; K80.20 Calculus of gallbladder without cholecystitis without obstruction; N20.0 Calculus of kidney; Z79.899 Other long term (current) drug therapy; Z85.72 Personal history of non-Hodgkin lymphomas; I25.2 Old myocardial infarction; Z86.73 Personal history of transient ischemic attack (TIA), and cerebral infarction without residual deficits; Z95.1 Presence of aortocoronary bypass graft; Z79.84 Long term (current) use of oral hypoglycemic drugs; Z79.2 Long term (current) use of antibiotics
CPT/HCPCS: 36415; 70551; 71045; 74176; 76705; 80048; 82962; 83735; 83880; 84443; 84484; 92523; 93005; 93970; 96374; 97162; 97166; 99284; 99285; J1160; J1815; J1940; J8597

== ENCOUNTER 2018-07-23 06:35 | Day surgery (SDC) | payer MEDICARE, BC ==
[~2018-07-23] VITALS: Ht 190.5 cm; Wt 93.9 kg
[~2018-07-23 06:35] MED LIST changes: -AM500 MT; -AMLO10TA80 MT; -EZET10TA26 MT; -FURO40TA5 MT; -GLYB5TAB7 MT
[2018-07-23] MEDS ORDERED: ASPI-1158 MT (07:53)
[2018-07-23] MEDS ORDERED: METF-416 MT (07:53)
[2018-07-23] MEDS ORDERED: POTA25TA8 MT (07:53)
[2018-07-23] MEDS ORDERED: CARV6.2548 MT (07:53)
[2018-07-23] MEDS ORDERED: HYDR-4135 PO (07:53)
[2018-07-23] MEDS ORDERED: FURO-151 PO (07:53)
[2018-07-23] MEDS ORDERED: DOCU-150 MT (07:53)
[2018-07-23] MEDS ORDERED: DIGO250T81 MT (07:53)
[2018-07-23] MEDS ORDERED: APIX5TAB MT (07:53)
[2018-07-23] MEDS ORDERED: AMI2 PO (07:53)
[2018-07-23] MEDS ORDERED: DAPA5TAB MT (07:53)
[2018-07-23] MEDS ORDERED: FENTANYL CITRATE/PF 50MCG/ML 2ML VIAL ONE ×2 (07:57→08:52)
[2018-07-23] MEDS ORDERED: TETRACAINE/BENZOCAINE/BUTAMBEN 20 GM SPRAY MM ONE (07:57)
[2018-07-23] MEDS ORDERED: MIDAZOLAM HCL 2 MG/2 ML VIAL ONE ×3 (07:57→08:52)
[2018-07-23] MEDS ORDERED: LIDOCAINE HCL 2% JELLY 5ML ONE (08:11)
[2018-07-23] MEDS ORDERED: ONDANSETRON HCL 4MG/2ML INJ IV PRN (09:15)
[2018-07-23] MEDS ORDERED: ACETAMINOPHEN 325MG TABLET PO PRN (09:15)
[2018-07-23] MEDS ORDERED: ATROPINE SULFATE 1MG/10ML SYR IV PRN (09:15)
== END 2018-07-23 13:00 | disposition home or self-care (01) ==
LOC: CARD 06:35
PROVIDERS: ATTEND Specialist
DX: I48.91 Unspecified atrial fibrillation (principal); I34.0 Nonrheumatic mitral (valve) insufficiency; I11.0 Hypertensive heart disease with heart failure; I25.10 Atherosclerotic heart disease of native coronary artery without angina pectoris; E11.9 Type 2 diabetes mellitus without complications; I25.2 Old myocardial infarction; Z95.1 Presence of aortocoronary bypass graft; E78.5 Hyperlipidemia, unspecified; I25.5 Ischemic cardiomyopathy
CPT/HCPCS: 92960; 93005; 93312; 99152; J2250; J3010; G0500

== ENCOUNTER 2018-08-27 06:27 | Inpatient (IN) | payer MEDICARE, BC ==
[2018-08-27] VITALS (11 sets, daily range): BP systolic 132–165; BP diastolic 72–103
[~2018-08-27] VITALS: Ht 195.6 cm; Wt 101.6 kg
[~2018-08-27 06:27] MED LIST changes: +APIX5TAB MT; +ASPI-1158 MT; +CARV6.2548 MT; +DAPA5TAB MT; +DIGO250T81 MT; +DOCU-150 MT; +FURO-151 PO; +HYDR-4135 PO; +POTA25TA8 MT
[2018-08-27] MEDS ORDERED: IOHEXOL-300 100 ML BOTTLE ONE (07:55)
[2018-08-27] MEDS ORDERED: GENTAMICIN SULF 40MG/ML 2ML VIAL ONE (07:55)
[2018-08-27] MEDS ORDERED: LIDOCAINE HCL 1% 20ML VIAL (Pyxis) INJ ONE (07:56)
[2018-08-27] MEDS ORDERED: GENTAMICIN/NS IRRIGATION 500 ML IR ONE (07:56)
[2018-08-27 08:22] LABS: HEMATOCRIT 40.4 % (42.0-52.0); HEMOGLOBIN 13.3 g/dL (14.0-18.0); MEAN CORPUSCULAR HEMOGLOBIN 28.5 pg (28.0-32.0); PLATELET 209 x1000/uL (130-400); RED BLOOD CELL COUNT 4.65 mill/uL (4.7-6.1)
[2018-08-27 08:28] LABS: CHLORIDE 108 mEq/L (98-107)
[2018-08-27 08:32] LABS: PARTIAL THROMBOPLASTIN TIME 35.9 sec (23.4-31.0); PROTHROMBIN TIME 10.8 sec (9.6-11.0)
[2018-08-27] MEDS ORDERED: PROPOFOL 10MG/ML 100ML 100 ML IV ONE (09:08)
[2018-08-27] MEDS ORDERED: CEFAZOLIN SODIUM 1000MG/VIAL ONE (09:12)
[2018-08-27] MEDS ORDERED: MIDAZOLAM HCL 2 MG/2 ML VIAL ONE (09:12)
[2018-08-27] MEDS ORDERED: FENTANYL CITRATE/PF 50MCG/ML 2ML VIAL ONE (09:12)
[2018-08-27] MEDS ORDERED: MEPERIDINE HCL/PF 25MG/ML CPJ IV PRN (10:30)
[2018-08-27] MEDS ORDERED: ONDANSETRON HCL 4MG/2ML INJ IV PRN (10:30)
[2018-08-27] MEDS ORDERED: MORPHINE SULFATE 2 MG/ML CPJ (NOT FOR IM USE) IV PRN (10:30)
[2018-08-27] MEDS ORDERED: FENTANYL CITRATE/PF 50MCG/ML 2ML VIAL IV PRN (10:30)
[2018-08-27] MEDS ORDERED: HYDROMORPHONE HCL/PF 2MG/ML CPJ IV PRN (10:30)
[2018-08-27] MEDS: HYDRALAZINE HCL 50MG TABLET PO SCH ×3 (13:10→23:28)
[2018-08-27] MEDS ORDERED: ZOLPIDEM TARTRATE 5MG TABLET PO PRN (14:45)
[2018-08-27] MEDS ORDERED: DEXTROSE 50% WATER 50ML SYRINGE IV PRN (15:00)
[2018-08-27] MEDS: HYDROCODONE/ACETAMINOPHEN 5/325MG TABLET PO PRN ×2 (15:09→23:28)
[2018-08-27] MEDS: BLOOD SUGAR DIAGNOSTIC STRIP TEST SCH ×2 (16:53→20:26)
[2018-08-27] MEDS ORDERED: APIXABAN 5 MG TABLET PO SCH (17:00)
[2018-08-27] MEDS: INSULIN LISPRO 100 UNITS/ML SUBCUT SCH ×2 (17:52→20:26)
[2018-08-27] MEDS ORDERED: DIGOXIN 250MCG TABLET PO SCH (18:00)
[2018-08-27] MEDS: CARVEDILOL 12.5MG TABLET PO SCH (20:22)
[2018-08-27] MEDS: FUROSEMIDE 40MG TABLET PO SCH (20:22)
[2018-08-27] MEDS ORDERED: CARVEDILOL 6.25 MG TABLET PO SCH (21:00)
[2018-08-28] VITALS (7 sets, daily range): BP systolic 125–166; BP diastolic 69–100
[2018-08-28] MEDS: BLOOD SUGAR DIAGNOSTIC STRIP TEST SCH ×2 (06:38→13:00)
[2018-08-28] MEDS: INSULIN LISPRO 100 UNITS/ML SUBCUT SCH ×2 (06:38→12:20)
[2018-08-28] MEDS: HYDROCODONE/ACETAMINOPHEN 5/325MG TABLET PO PRN (06:38)
[2018-08-28] MEDS: HYDRALAZINE HCL 50MG TABLET PO SCH ×2 (06:38→11:06)
[2018-08-28 07:15] LABS: BASOPHILS % 0.6 % (0.0-2.0); EOSINOPHILS % 0.7 % (0.0-5.0); HEMATOCRIT. 38.8 % (42.0-52.0); HEMOGLOBIN. 13.2 g/dL (14.0-18.0); LYMPHOCYTES % 16.8 % (20.0-50.0); MEAN CORPUSCULAR HEMOGLOBIN 29.1 pg (28.0-32.0); MEAN CORPUSCULAR VOLUME 85.9 fL (80.0-94.0); MEAN PLATELET VOLUME 9.2 fl (7.4-10.4); MONOCYTES % 8.6 % (2.0-8.0); NEUTROPHILS % 73.3 % (40.0-76.0); PLATELET 219 x1000/uL (130-400); RED BLOOD CELL COUNT 4.52 mill/uL (4.7-6.1); RED CELL DISTRIBUTION WIDTH 14.1 % (11.6-14.6)
[2018-08-28 08:40] LABS: CHLORIDE 109 mEq/L (98-107)
[2018-08-28] MEDS ORDERED: ASPIRIN 81MG TABLET PO SCH (09:00)
[2018-08-28] MEDS ORDERED: DOCUSATE SODIUM 100MG CAPSULE PO SCH (09:00)
[2018-08-28] MEDS: FUROSEMIDE 40MG TABLET PO SCH (09:04)
[2018-08-28] MEDS: CARVEDILOL 12.5MG TABLET PO SCH (09:04)
[2018-08-28] MEDS ORDERED: APIXABAN 5 MG TABLET PO SCH (10:56)
[2018-11-02] MEDS ORDERED: POTA99TA4 PO (11:50)
[2018-11-02] MEDS ORDERED: COR12 PO (11:50)
[2018-11-02] MEDS ORDERED: CHOL100053 PO (11:50)
== END 2018-08-28 13:24 | disposition home or self-care (01) | DRG 224 ==
LOC: CCL 06:27 → 3WST 06:28
PROVIDERS: ADMIT Internal Medicine Clinical Cardiac Electrophysiology; ATTEND Internal Medicine Clinical Cardiac Electrophysiology
PROC: 0JH608Z Insertion of Defibrillator Generator into Chest Subcutaneous Tissue and Fascia, Open Approach (ICD-10-PCS; principal; 2018-08-27)
PROC: 02HK3KZ Insertion of Defibrillator Lead into Right Ventricle, Percutaneous Approach (ICD-10-PCS; 2018-08-27)
PROC: 02H63KZ Insertion of Defibrillator Lead into Right Atrium, Percutaneous Approach (ICD-10-PCS; 2018-08-27)
PROC: 4A023N6 Measurement of Cardiac Sampling and Pressure, Right Heart, Percutaneous Approach (ICD-10-PCS; 2018-08-27)
PROC: 4B02XTZ Measurement of Cardiac Defibrillator, External Approach (ICD-10-PCS; 2018-08-27)
DX: I25.5 Ischemic cardiomyopathy (principal); I50.23 Acute on chronic systolic (congestive) heart failure; I48.1 Persistent atrial fibrillation; E11.9 Type 2 diabetes mellitus without complications; G47.00 Insomnia, unspecified; I11.0 Hypertensive heart disease with heart failure; I25.10 Atherosclerotic heart disease of native coronary artery without angina pectoris; I27.20 Pulmonary hypertension, unspecified; D63.8 Anemia in other chronic diseases classified elsewhere; I34.0 Nonrheumatic mitral (valve) insufficiency; I48.2 Chronic atrial fibrillation; I49.3 Ventricular premature depolarization; I25.2 Old myocardial infarction; Z79.01 Long term (current) use of anticoagulants; Z86.73 Personal history of transient ischemic attack (TIA), and cerebral infarction without residual deficits; Z95.1 Presence of aortocoronary bypass graft
CPT/HCPCS: 33249; 36415; 71045; 75820; 80048; 82962; 85027; 93005; 93451; 93640; C1721; C1892; C1893; C1898; C1899; J0690; J1580; J1644; J1815; J2250; J2704; J3010; J3490; J7040; J7050; Q9967

== ENCOUNTER → 2018-11-02 | Day surgery (SDC) | payer MEDICARE, BC ==
[~2018-11-02] VITALS: Ht 195.6 cm; Wt 86.2 kg
[~2018-11-02] MED LIST changes: +CHOL100053 PO; +COR12 PO; +HEPARIN 1,000 UNITS PREMIX 2,000 ML IV ONE; +LIDOCAINE HCL 1% 20ML VIAL (Pyxis) INJ ONE; +POTA99TA4 PO
[2018-11-02 10:37] LABS: CHLORIDE 106 mEq/L (98-107)
[2018-11-02 10:41] LABS: BASOPHILS % 0.4 % (0.0-2.0); HEMATOCRIT. 44.1 % (42.0-52.0); HEMOGLOBIN. 14.5 g/dL (14.0-18.0); LYMPHOCYTES % 21.1 % (20.0-50.0); MEAN CORPUSCULAR HEMOGLOBIN 28.5 pg (28.0-32.0); MEAN CORPUSCULAR VOLUME 86.5 fL (80.0-94.0); MEAN PLATELET VOLUME 9.3 fl (7.4-10.4); NEUTROPHILS % 68.5 % (40.0-76.0); PLATELET 172 x1000/uL (130-400); RED BLOOD CELL COUNT 5.09 mill/uL (4.7-6.1); RED CELL DISTRIBUTION WIDTH 15.4 % (11.6-14.6)
[2018-11-02 10:42] LABS: PROTHROMBIN TIME 10.5 sec (9.6-11.0)
== END | disposition home or self-care (01) ==
LOC: CCL 07:16
PROVIDERS: ATTEND Internal Medicine Clinical Cardiac Electrophysiology
DX: I48.2 Chronic atrial fibrillation (principal); I42.8 Other cardiomyopathies; I50.9 Heart failure, unspecified; E11.9 Type 2 diabetes mellitus without complications; I11.0 Hypertensive heart disease with heart failure; I25.10 Atherosclerotic heart disease of native coronary artery without angina pectoris; I25.2 Old myocardial infarction; Z86.73 Personal history of transient ischemic attack (TIA), and cerebral infarction without residual deficits; Z95.1 Presence of aortocoronary bypass graft; Z91.041 Radiographic dye allergy status; Z53.8 Procedure and treatment not carried out for other reasons
CPT/HCPCS: 36415; 80048; 82962; 85025; 85610; 85730; 93005; J1644; J3490

== ENCOUNTER 2018-11-28 22:12 | Inpatient (IN) | payer MEDICARE, BC ==
[~2018-11-28] VITALS: Ht 195.6 cm; Wt 84.8 kg
[~2018-11-28 22:12] MED LIST changes: -CARV6.2548 MT; -HEPARIN 1,000 UNITS PREMIX 2,000 ML IV ONE; -LIDOCAINE HCL 1% 20ML VIAL (Pyxis) INJ ONE; -POTA25TA8 MT
[2018-11-28] MEDS ORDERED: ONDANSETRON HCL 4MG/2ML INJ IV STA (23:21)
[2018-11-28] MEDS ORDERED: SODIUM CHLORIDE 0.9% 250 ML IV ONE (23:30)
[2018-11-29 00:06] LABS: BASOPHILS % 0.4 % (0.0-2.0); EOSINOPHILS % 0.3 % (0.0-5.0); HEMOGLOBIN. 14.1 g/dL (14.0-18.0); LYMPHOCYTES % 17.8 % (20.0-50.0); MEAN CORPUSCULAR VOLUME 86.4 fL (80.0-94.0); MEAN PLATELET VOLUME 8.6 fl (7.4-10.4); MONOCYTES % 6.5 % (2.0-8.0); PLATELET 186 x1000/uL (130-400); RED BLOOD CELL COUNT 4.87 mill/uL (4.7-6.1); RED CELL DISTRIBUTION WIDTH 15.3 % (11.6-14.6)
[2018-11-29 00:09] LABS: CHLORIDE 102 mEq/L (98-107)
[2018-11-29] MEDS ORDERED: ONDANSETRON HCL 4MG/2ML INJ IV ONE (03:30)
[2018-11-29] MEDS ORDERED: LORAZEPAM 0.5MG TABLET PO ONE (03:30)
[2018-11-29] MEDS ORDERED: AMIODARONE HCL 200 MG TABLET PO ONE (11:45)
[2018-11-29] MEDS ORDERED: CARVEDILOL 12.5MG TABLET PO ONE (11:45)
[2018-11-29] MEDS ORDERED: DIGOXIN 250MCG TABLET PO ONE (12:00)
[2018-11-29] MEDS ORDERED: AMIODARONE HCL 200 MG TABLET PO NR (14:45)
[2018-11-29] MEDS ORDERED: APIXABAN 5 MG TABLET PO SCH (14:45)
[2018-11-29] MEDS ORDERED: CARVEDILOL 12.5MG TABLET PO NR (14:45)
[2018-11-29 16:00] VITALS: BP 148/91
[2018-11-29] MEDS ORDERED: METFORMIN HCL 500MG TABLET PO SCH (17:00)
[2018-11-29] MEDS: METFORMIN HCL 500MG TABLET PO SCH (17:46)
[2018-11-29] MEDS: DOCUSATE SODIUM 100MG CAPSULE PO SCH (17:47)
[2018-11-29] MEDS: DIGOXIN 250MCG TABLET PO SCH (17:47)
[2018-11-29] MEDS: HYDRALAZINE HCL 10MG TABLET PO SCH (17:47)
[2018-11-29 18:10] VITALS: BP 148/91
[2018-11-29 20:00] VITALS: BP 148/87
[2018-11-29] MEDS: CARVEDILOL 12.5MG TABLET PO SCH (20:54)
[2018-11-29] MEDS: AMIODARONE HCL 200 MG TABLET PO SCH (20:59)
[2018-11-30] VITALS: BP 138/87
[2018-11-30 04:00] VITALS: BP 136/88
[2018-11-30] MEDS ORDERED: APIXABAN 5 MG TABLET PO SCH (07:00)
[2018-11-30 07:09] LABS: BASOPHILS % 0.6 % (0.0-2.0); EOSINOPHILS % 1.1 % (0.0-5.0); HEMATOCRIT. 41.5 % (42.0-52.0); HEMOGLOBIN. 14.3 g/dL (14.0-18.0); LYMPHOCYTES % 25.8 % (20.0-50.0); MEAN CORPUSCULAR HEMOGLOBIN 29.5 pg (28.0-32.0); MEAN CORPUSCULAR VOLUME 85.5 fL (80.0-94.0); MEAN PLATELET VOLUME 9.4 fl (7.4-10.4); MONOCYTES % 7.4 % (2.0-8.0); NEUTROPHILS % 65.1 % (40.0-76.0); PLATELET 171 x1000/uL (130-400); RED BLOOD CELL COUNT 4.86 mill/uL (4.7-6.1)
[2018-11-30 08:00] VITALS: BP 147/96
[2018-11-30] MEDS: AMIODARONE HCL 200 MG TABLET PO SCH ×2 (08:26→21:31)
[2018-11-30] MEDS: CARVEDILOL 12.5MG TABLET PO SCH ×2 (08:26→21:34)
[2018-11-30] MEDS: DOCUSATE SODIUM 100MG CAPSULE PO SCH ×2 (08:26→16:18)
[2018-11-30] MEDS: APIXABAN 5 MG TABLET PO SCH ×2 (08:27→21:32)
[2018-11-30] MEDS: ASPIRIN 81MG TABLET PO SCH (08:27)
[2018-11-30] MEDS: METFORMIN HCL 500MG TABLET PO SCH ×2 (08:27→17:41)
[2018-11-30] MEDS: HYDRALAZINE HCL 10MG TABLET PO SCH ×2 (08:27→16:17)
[2018-11-30 10:25] LABS: CHLORIDE 106 mEq/L (98-107)
[2018-11-30 10:31] LABS: PHOSPHORUS 2.9 mg/dL (2.5-4.9)
[2018-11-30 12:00] VITALS: BP 130/78
[2018-11-30 15:58] VITALS: BP 142/83
[2018-11-30] MEDS: DIGOXIN 250MCG TABLET PO SCH (17:41)
[2018-12-01 00:03] VITALS: BP 129/87
[2018-12-01 04:00] VITALS: BP 131/87
[2018-12-01 07:04] LABS: BASOPHILS % 0.7 % (0.0-2.0); HEMATOCRIT. 41.1 % (42.0-52.0); LYMPHOCYTES % 24.5 % (20.0-50.0); MEAN CORPUSCULAR HEMOGLOBIN 29.4 pg (28.0-32.0); MEAN CORPUSCULAR VOLUME 86.1 fL (80.0-94.0); MEAN PLATELET VOLUME 9.3 fl (7.4-10.4); MONOCYTES % 8.5 % (2.0-8.0); NEUTROPHILS % 64.3 % (40.0-76.0); PLATELET 146 x1000/uL (130-400); RED BLOOD CELL COUNT 4.77 mill/uL (4.7-6.1); RED CELL DISTRIBUTION WIDTH 15.4 % (11.6-14.6)
[2018-12-01 08:00] VITALS: BP 147/90
[2018-12-01] MEDS: DOCUSATE SODIUM 100MG CAPSULE PO SCH ×2 (09:00→18:15)
[2018-12-01] MEDS: ASPIRIN 81MG TABLET PO SCH (09:10)
[2018-12-01] MEDS: APIXABAN 5 MG TABLET PO SCH ×2 (09:10→21:11)
[2018-12-01] MEDS: AMIODARONE HCL 200 MG TABLET PO SCH ×2 (09:11→21:11)
[2018-12-01] MEDS: METFORMIN HCL 500MG TABLET PO SCH ×2 (09:11→18:14)
[2018-12-01] MEDS: HYDRALAZINE HCL 10MG TABLET PO SCH ×2 (09:35→18:14)
[2018-12-01] MEDS: CARVEDILOL 12.5MG TABLET PO SCH ×2 (09:36→21:14)
[2018-12-01 10:54] LABS: CHLORIDE 108 mEq/L (98-107)
[2018-12-01 12:00] VITALS: BP 135/86
[2018-12-01] MEDS ORDERED: PROPOFOL 200MG/20ML VIAL IV ONE (15:00)
[2018-12-01] MEDS ORDERED: LIDOCAINE HCL/PF 1% 10 MG/ML 5ML VIAL ONE (15:00)
[2018-12-01] MEDS ORDERED: MIDAZOLAM HCL 2 MG/2 ML VIAL ONE (15:00)
[2018-12-01] MEDS ORDERED: ONDANSETRON HCL 4MG/2ML INJ IV PRN (15:45)
[2018-12-01 16:00] VITALS: BP 143/92
[2018-12-01] MEDS: DIGOXIN 250MCG TABLET PO SCH (18:14)
[2018-12-01 20:00] VITALS: BP 131/89
[2018-12-02] VITALS: BP 138/83
[2018-12-02 04:00] VITALS: BP 136/88
[2018-12-02 06:10] LABS: BASOPHILS % 0.5 % (0.0-2.0); EOSINOPHILS % 1.2 % (0.0-5.0); HEMATOCRIT. 38.8 % (42.0-52.0); HEMOGLOBIN. 13.3 g/dL (14.0-18.0); LYMPHOCYTES % 16.2 % (20.0-50.0); MEAN CORPUSCULAR HEMOGLOBIN 29.2 pg (28.0-32.0); MEAN CORPUSCULAR VOLUME 85.3 fL (80.0-94.0); MEAN PLATELET VOLUME 9.5 fl (7.4-10.4); MONOCYTES % 6.4 % (2.0-8.0); NEUTROPHILS % 75.7 % (40.0-76.0); PLATELET 136 x1000/uL (130-400); RED BLOOD CELL COUNT 4.55 mill/uL (4.7-6.1); RED CELL DISTRIBUTION WIDTH 14.9 % (11.6-14.6)
[2018-12-02 06:12] LABS: CHLORIDE 108 mEq/L (98-107)
[2018-12-02 08:00] VITALS: BP 141/96
[2018-12-02] MEDS: ASPIRIN 81MG TABLET PO SCH (09:34)
[2018-12-02] MEDS: DOCUSATE SODIUM 100MG CAPSULE PO SCH (09:34)
[2018-12-02] MEDS: CARVEDILOL 12.5MG TABLET PO SCH (09:34)
[2018-12-02] MEDS: METFORMIN HCL 500MG TABLET PO SCH (09:35)
[2018-12-02] MEDS: AMIODARONE HCL 200 MG TABLET PO SCH (09:35)
[2018-12-02] MEDS: HYDRALAZINE HCL 10MG TABLET PO SCH (09:35)
[2018-12-02] MEDS: APIXABAN 5 MG TABLET PO SCH (09:35)
== END 2018-12-02 16:00 | disposition home or self-care (01) | DRG 309 ==
LOC: ER 22:12 → 7WST 11-29 00:37 → EDBEDREQ 11-29 00:39 → EDBEDREQTM 11-29 00:39 → ENRESERV 11-29 11:23
PROVIDERS: ADMIT Internal Medicine; ATTEND Internal Medicine
PROC: 5A2204Z Restoration of Cardiac Rhythm, Single (ICD-10-PCS; principal; 2018-12-01)
PROC: 4B02XTZ Measurement of Cardiac Defibrillator, External Approach (ICD-10-PCS; 2018-12-01)
DX: I48.92 Unspecified atrial flutter (principal); I13.0 Hypertensive heart and chronic kidney disease with heart failure and stage 1 through stage 4 chronic kidney disease, or unspecified chronic kidney disease; I42.9 Cardiomyopathy, unspecified; I50.9 Heart failure, unspecified; E11.22 Type 2 diabetes mellitus with diabetic chronic kidney disease; I48.91 Unspecified atrial fibrillation; I25.10 Atherosclerotic heart disease of native coronary artery without angina pectoris; I49.3 Ventricular premature depolarization; I27.20 Pulmonary hypertension, unspecified; N18.2 Chronic kidney disease, stage 2 (mild); E78.00 Pure hypercholesterolemia, unspecified; E78.5 Hyperlipidemia, unspecified; K59.00 Constipation, unspecified; I48.2 Chronic atrial fibrillation; Z79.01 Long term (current) use of anticoagulants; Z79.82 Long term (current) use of aspirin; Z95.810 Presence of automatic (implantable) cardiac defibrillator; I25.2 Old myocardial infarction; Z95.1 Presence of aortocoronary bypass graft; Z79.84 Long term (current) use of oral hypoglycemic drugs; Z79.899 Other long term (current) drug therapy; Z85.72 Personal history of non-Hodgkin lymphomas; Z91.041 Radiographic dye allergy status; Z79.4 Long term (current) use of insulin
CPT/HCPCS: 36415; 71045; 80048; 80162; 82962; 83036; 83605; 83735; 83880; 84100; 84484; 92960; 93005; 96361; 96374; 96376; 97162; 99285; J2250; J2405; J2704; J3490; J7050

== ENCOUNTER 2019-01-20 05:15 | Inpatient (IN) | payer MEDICARE, BC ==
[~2019-01-20] VITALS: Ht 195.6 cm; Wt 85.4 kg
[~2019-01-20 05:15] MED LIST changes: +AMI2 PO; -CHOL100053 PO; -DOCU-150 MT; +DOCU-150 PO; -FURO-151 PO; +ISOS1TAB PO; -POTA99TA4 PO
[2019-01-20 06:57] LABS: BASOPHILS % 0.3 % (0.0-2.0); EOSINOPHILS % 0.8 % (0.0-5.0); HEMATOCRIT. 35.2 % (42.0-52.0); HEMOGLOBIN. 11.8 g/dL (14.0-18.0); LYMPHOCYTES % 13.4 % (20.0-50.0); MEAN CORPUSCULAR HEMOGLOBIN 29.5 pg (28.0-32.0); MEAN CORPUSCULAR VOLUME 87.6 fL (80.0-94.0); MEAN PLATELET VOLUME 9.2 fl (7.4-10.4); MONOCYTES % 8.4 % (2.0-8.0); NEUTROPHILS % 77.1 % (40.0-76.0); PLATELET 171 x1000/uL (130-400); RED BLOOD CELL COUNT 4.01 mill/uL (4.7-6.1); RED CELL DISTRIBUTION WIDTH 15.6 % (11.6-14.6)
[2019-01-20 07:03] LABS: CHLORIDE 108 mEq/L (98-107)
[2019-01-20] MEDS ORDERED: ENALAPRIL 2.5MG/2ML VIAL 2ML IV ONE (07:15)
[2019-01-20] MEDS ORDERED: FUROSEMIDE 40MG/4ML VIAL IVP ONE (07:15)
[2019-01-20] MEDS ORDERED: ENALAPRIL 1.25MG/ML VIAL 1ML IV NR (08:00)
[2019-01-20 11:00] VITALS: BP 139/89
[2019-01-20] MEDS ORDERED: DIGO125T82 MT (11:04)
[2019-01-20] MEDS ORDERED: CARV12.545 MT (11:04)
[2019-01-20] MEDS ORDERED: POTA20TA82 MT (11:04)
[2019-01-20] MEDS ORDERED: METF-414 PO (11:04)
[2019-01-20] MEDS ORDERED: FURO20TA4 PO (11:04)
[2019-01-20] MEDS ORDERED: DEXTROSE 50% WATER 50ML SYRINGE IV PRN (11:45)
[2019-01-20 12:00] VITALS: BP 141/95
[2019-01-20] MEDS: BLOOD SUGAR DIAGNOSTIC STRIP TEST SCH ×3 (12:22→21:00)
[2019-01-20] MEDS: POTASSIUM CHLORIDE 20MEQ TABLET SR PO SCH ×3 (12:45→21:03)
[2019-01-20] MEDS: CARVEDILOL 12.5MG TABLET PO SCH ×2 (12:45→21:03)
[2019-01-20] MEDS: INSULIN LISPRO 100 UNITS/ML SUBCUT SCH ×3 (12:49→21:09)
[2019-01-20] MEDS ORDERED: HYDR-4133 PO (13:07)
[2019-01-20] MEDS ORDERED: APIX2.5T MT (13:07)
[2019-01-20 16:00] VITALS: BP 143/96
[2019-01-20] MEDS: FUROSEMIDE 100MG/10ML VIAL IVP SCH (17:35)
[2019-01-20] MEDS: APIXABAN 2.5 MG TABLET PO SCH (17:45)
[2019-01-20 20:00] VITALS: BP 139/78
[2019-01-20] MEDS: SACUBITRIL/VALSARTAN 24/26 TAB PO SCH (21:02)
[2019-01-21] VITALS: BP 145/98
[2019-01-21 02:00] VITALS: BP 145/98
[2019-01-21 04:00] VITALS: BP 141/82
[2019-01-21 07:24] LABS: BASOPHILS % 0.5 % (0.0-2.0); EOSINOPHILS % 1.3 % (0.0-5.0); HEMATOCRIT. 36.5 % (42.0-52.0); HEMOGLOBIN. 12.2 g/dL (14.0-18.0); LYMPHOCYTES % 12.8 % (20.0-50.0); MEAN CORPUSCULAR HEMOGLOBIN 29.4 pg (28.0-32.0); MEAN CORPUSCULAR VOLUME 88.2 fL (80.0-94.0); MEAN PLATELET VOLUME 9.7 fl (7.4-10.4); MONOCYTES % 10.5 % (2.0-8.0); NEUTROPHILS % 74.9 % (40.0-76.0); PLATELET 165 x1000/uL (130-400); RED BLOOD CELL COUNT 4.14 mill/uL (4.7-6.1); RED CELL DISTRIBUTION WIDTH 15.5 % (11.6-14.6)
[2019-01-21] MEDS: INSULIN LISPRO 100 UNITS/ML SUBCUT SCH ×4 (07:50→21:33)
[2019-01-21 08:00] VITALS: BP 152/98
[2019-01-21] MEDS: BLOOD SUGAR DIAGNOSTIC STRIP TEST SCH ×4 (08:03→21:32)
[2019-01-21 08:09] LABS: CHLORIDE 109 mEq/L (98-107)
[2019-01-21] MEDS: CARVEDILOL 12.5MG TABLET PO SCH ×2 (09:09→21:32)
[2019-01-21] MEDS: FUROSEMIDE 100MG/10ML VIAL IVP SCH ×2 (09:09→16:47)
[2019-01-21] MEDS: APIXABAN 2.5 MG TABLET PO SCH ×2 (09:10→16:47)
[2019-01-21] MEDS: SACUBITRIL/VALSARTAN 24/26 TAB PO SCH (09:10)
[2019-01-21] MEDS: DOCUSATE SODIUM 100MG CAPSULE PO SCH (09:10)
[2019-01-21 12:00] VITALS: BP 129/84
[2019-01-21] MEDS: MEGESTROL ACETATE 400 MG/10 ML UDC PO SCH (14:05)
[2019-01-21 16:00] VITALS: BP 123/84
[2019-01-21] MEDS ORDERED: ONDANSETRON HCL 4MG/2ML INJ IV PRN (16:00)
[2019-01-21] MEDS ORDERED: HYDR-4135 PO (17:01)
[2019-01-21] MEDS ORDERED: DUTA1CPM4 PO (17:01)
[2019-01-21] MEDS ORDERED: DAPA5TAB PO (17:01)
[2019-01-21] MEDS ORDERED: AMIO100T4 PO (17:01)
[2019-01-22] VITALS: BP 115/74
[2019-01-22 04:00] VITALS: BP 95/60
[2019-01-22 06:19] LABS: BASOPHILS % 0.3 % (0.0-2.0); EOSINOPHILS % 1.4 % (0.0-5.0); HEMATOCRIT. 35.7 % (42.0-52.0); HEMOGLOBIN. 11.9 g/dL (14.0-18.0); LYMPHOCYTES % 23.7 % (20.0-50.0); MEAN CORPUSCULAR HEMOGLOBIN 29.3 pg (28.0-32.0); MEAN CORPUSCULAR VOLUME 87.6 fL (80.0-94.0); MEAN PLATELET VOLUME 9.7 fl (7.4-10.4); MONOCYTES % 9.3 % (2.0-8.0); NEUTROPHILS % 65.3 % (40.0-76.0); PLATELET 174 x1000/uL (130-400); RED BLOOD CELL COUNT 4.08 mill/uL (4.7-6.1); RED CELL DISTRIBUTION WIDTH 15.5 % (11.6-14.6)
[2019-01-22] MEDS: BLOOD SUGAR DIAGNOSTIC STRIP TEST SCH ×2 (06:28→12:20)
[2019-01-22] MEDS ORDERED: PANTOPRAZOLE 40MG DR TABLET PO SCH (07:20)
[2019-01-22 07:32] LABS: CHLORIDE 106 mEq/L (98-107)
[2019-01-22] MEDS: INSULIN LISPRO 100 UNITS/ML SUBCUT SCH ×2 (07:50→13:54)
[2019-01-22 08:00] VITALS: BP 110/83
[2019-01-22] MEDS: MEGESTROL ACETATE 400 MG/10 ML UDC PO SCH (09:07)
[2019-01-22] MEDS: DOCUSATE SODIUM 100MG CAPSULE PO SCH (09:08)
[2019-01-22] MEDS: SACUBITRIL/VALSARTAN 24/26 TAB PO SCH (09:08)
[2019-01-22] MEDS: FUROSEMIDE 100MG/10ML VIAL IVP SCH (09:08)
[2019-01-22] MEDS: APIXABAN 2.5 MG TABLET PO SCH (09:08)
[2019-01-22] MEDS: CARVEDILOL 12.5MG TABLET PO SCH (09:08)
[2019-01-22 12:00] VITALS: BP 91/65
[2019-01-22] MEDS ORDERED: POTASSIUM CHLORIDE 20MEQ TABLET SR PO SCH (13:30)
[2019-01-22 13:56] VITALS: BP 91/65
== END 2019-01-22 14:25 | disposition home or self-care (01) | DRG 292 ==
LOC: ER 05:15 → 6WST 07:44 → EDBEDREQ 07:46 → EDBEDREQTM 07:46 → ENRESERV 08:11 → CANRESERV 08:11 → ENRESERV 09:49
PROVIDERS: ADMIT Internal Medicine; ATTEND Internal Medicine
DX: I11.0 Hypertensive heart disease with heart failure (principal); I48.92 Unspecified atrial flutter; I50.23 Acute on chronic systolic (congestive) heart failure; I42.9 Cardiomyopathy, unspecified; I25.10 Atherosclerotic heart disease of native coronary artery without angina pectoris; E87.6 Hypokalemia; E78.5 Hyperlipidemia, unspecified; E10.9 Type 1 diabetes mellitus without complications; I48.91 Unspecified atrial fibrillation; Z86.73 Personal history of transient ischemic attack (TIA), and cerebral infarction without residual deficits; Z85.6 Personal history of leukemia; Z82.49 Family history of ischemic heart disease and other diseases of the circulatory system; Z79.01 Long term (current) use of anticoagulants; Z79.899 Other long term (current) drug therapy; I25.2 Old myocardial infarction; Z79.4 Long term (current) use of insulin; Z83.3 Family history of diabetes mellitus; Z95.1 Presence of aortocoronary bypass graft; Z95.810 Presence of automatic (implantable) cardiac defibrillator; Z99.81 Dependence on supplemental oxygen; Z91.041 Radiographic dye allergy status
CPT/HCPCS: 36415; 71045; 80048; 82962; 83735; 83880; 84484; 93005; 99285; J1815; J1940; J2405; J3490

== ENCOUNTER 2019-02-16 06:35 | Inpatient (IN) | payer MEDICARE, BC ==
[~2019-02-16] VITALS: Ht 195.6 cm; Wt 87.6 kg
[~2019-02-16 06:35] MED LIST changes: -AMI2 PO; +AMIO100T4 PO; +APIX2.5T MT; -APIX5TAB MT; -ASPI-1158 MT; -DAPA5TAB MT; +DAPA5TAB PO; +DIGO125T80 MT; -DIGO250T81 MT; +DUTA1CPM4 PO; +FURO20TA4 PO; -ISOS1TAB PO; +METF-414 PO; -METF-416 MT
[2019-02-16 08:06] LABS: HEMOGLOBIN 12.6 g/dL (14.0-18.0); MEAN CORPUSCULAR HEMOGLOBIN 29.5 pg (28.0-32.0); PLATELET 140 x1000/uL (130-400); RED BLOOD CELL COUNT 4.27 mill/uL (4.7-6.1)
[2019-02-16 08:12] LABS: CHLORIDE 108 mEq/L (98-107)
[2019-02-16 08:13] LABS: INR 1.1; PROTHROMBIN TIME 11.4 sec (9.6-11.0)
[2019-02-16] MEDS ORDERED: DIPHENHYDRAMINE 50MG/ML VIAL ONE (08:37)
[2019-02-16] MEDS ORDERED: FENTANYL CITRATE/PF 50MCG/ML 2ML VIAL ONE ×2 (08:37→08:52)
[2019-02-16] MEDS ORDERED: MIDAZOLAM HCL 2 MG/2 ML VIAL ONE (08:37)
[2019-02-16] MEDS ORDERED: HYDROCORTISONE SOD SUCCINATE 100 MG/2 ML VIAL ONE (08:37)
[2019-02-16] MEDS ORDERED: SODIUM CHLORIDE 0.9% 10ML VIAL ONE ×2 (08:50→10:01)
[2019-02-16] MEDS ORDERED: CEFAZOLIN SODIUM 1000MG/VIAL ONE (08:50)
[2019-02-16] MEDS ORDERED: FAMOTIDINE 20MG/2ML VIAL IV ONE (09:14)
[2019-02-16] MEDS ORDERED: GENTAMICIN SULF 40MG/ML 2ML VIAL ONE (09:14)
[2019-02-16] MEDS ORDERED: GENTAMICIN/NS IRRIGATION 500 ML IR ONE (09:15)
[2019-02-16] MEDS ORDERED: IODIXANOL 320MG/ML 100 ML BOTTLE IV ONE (09:15)
[2019-02-16] MEDS ORDERED: LIDOCAINE HCL 1% 20ML VIAL (Pyxis) INJ ONE (09:57)
[2019-02-16] MEDS ORDERED: HYDRALAZINE 20MG/ML VIAL ONE (10:01)
[2019-02-16] MEDS ORDERED: HYDROCODONE/ACETAMINOPHEN 5/325MG TABLET PO PRN (13:00)
[2019-02-16] MEDS ORDERED: HYDROMORPHONE HCL/PF 2MG/ML CPJ IV PRN (13:45)
[2019-02-16 16:00] VITALS: BP_SYST 133; BP_SYST 135; BP_DIAS 74
[2019-02-16] MEDS: FUROSEMIDE 20MG TABLET PO SCH (17:19)
[2019-02-16] MEDS: CARVEDILOL 12.5MG TABLET PO SCH (17:20)
[2019-02-16] MEDS: APIXABAN 2.5 MG TABLET PO SCH (17:20)
[2019-02-16] MEDS: ISOSORB DINIT/HYDRALAZINE HCL 20/37.5MG TABLET PO SCH ×2 (17:26→23:01)
[2019-02-16 18:00] VITALS: BP 160/94
[2019-02-16] MEDS ORDERED: DIGOXIN 125MCG TABLET PO SCH (18:00)
[2019-02-16 20:00] VITALS: BP 108/66
[2019-02-16] MEDS: AMIODARONE HCL 200 MG TABLET PO SCH (21:33)
[2019-02-16] MEDS: HYDRALAZINE HCL 50MG TABLET PO SCH (21:33)
[2019-02-16 22:01] VITALS: BP 134/81
[2019-02-16] MEDS ORDERED: POTASSIUM CHLORIDE 20MEQ TABLET SR PO NR (23:00)
[2019-02-17] VITALS (7 sets, daily range): BP systolic 96–151; BP diastolic 61–90
[2019-02-17] MEDS: CEFAZOLIN 1000MG PREMIX 50 ML IV SCH ×2 (01:07→09:38)
[2019-02-17] MEDS: ISOSORB DINIT/HYDRALAZINE HCL 20/37.5MG TABLET PO SCH (06:33)
[2019-02-17 06:40] LABS: CHLORIDE 109 mEq/L (98-107)
[2019-02-17 07:03] LABS: BASOPHILS % 0.3 % (0.0-2.0); EOSINOPHILS % 0.6 % (0.0-5.0); HEMATOCRIT. 36.3 % (42.0-52.0); HEMOGLOBIN. 12.2 g/dL (14.0-18.0); LYMPHOCYTES % 21.3 % (20.0-50.0); MEAN CORPUSCULAR HEMOGLOBIN 29.8 pg (28.0-32.0); MEAN CORPUSCULAR VOLUME 88.9 fL (80.0-94.0); MEAN PLATELET VOLUME 10.1 fl (7.4-10.4); MONOCYTES % 10.6 % (2.0-8.0); NEUTROPHILS % 67.2 % (40.0-76.0); PLATELET 139 x1000/uL (130-400); RED BLOOD CELL COUNT 4.08 mill/uL (4.7-6.1); RED CELL DISTRIBUTION WIDTH 15.9 % (11.6-14.6)
[2019-02-17] MEDS: APIXABAN 2.5 MG TABLET PO SCH (08:25)
[2019-02-17] MEDS: FUROSEMIDE 20MG TABLET PO SCH (08:25)
[2019-02-17] MEDS: CARVEDILOL 12.5MG TABLET PO SCH (08:25)
[2019-02-17] MEDS: AMIODARONE HCL 200 MG TABLET PO SCH (08:26)
[2019-02-17] MEDS: HYDRALAZINE HCL 50MG TABLET PO SCH (08:26)
[2019-02-17] MEDS ORDERED: DOCUSATE SODIUM 100MG CAPSULE PO SCH (09:00)
[2019-02-17] MEDS ORDERED: ISOS1TAB MT (11:26)
[2019-02-17] MEDS ORDERED: CARV25TA47 MT (11:28)
[2019-04-14] MEDS ORDERED: [UNRECOGNIZED DRUG - OTHER] (11:24)
[2019-04-14] MEDS ORDERED: SPIR25TA6 MT (11:24)
[2019-04-14] MEDS ORDERED: SACU1TAB7 MT (11:24)
[2019-04-14] MEDS ORDERED: POTA20TA82 MT (11:24)
== END 2019-02-17 12:28 | disposition home or self-care (01) | DRG 224 ==
LOC: CCL 06:35 → 3WST 06:36
PROVIDERS: ADMIT Internal Medicine Clinical Cardiac Electrophysiology; ATTEND Internal Medicine Clinical Cardiac Electrophysiology
PROC: 02HL3KZ Insertion of Defibrillator Lead into Left Ventricle, Percutaneous Approach (ICD-10-PCS; principal; 2019-02-16)
PROC: 02H43KZ Insertion of Defibrillator Lead into Coronary Vein, Percutaneous Approach (ICD-10-PCS; 2019-02-16)
PROC: 4A023N6 Measurement of Cardiac Sampling and Pressure, Right Heart, Percutaneous Approach (ICD-10-PCS; 2019-02-16)
PROC: 0JPT0PZ Removal of Cardiac Rhythm Related Device from Trunk Subcutaneous Tissue and Fascia, Open Approach (ICD-10-PCS; 2019-02-16)
PROC: B51NYZA Fluoroscopy of Left Upper Extremity Veins using Other Contrast, Guidance (ICD-10-PCS; 2019-02-16)
PROC: 0JH609Z Insertion of Cardiac Resynchronization Defibrillator Pulse Generator into Chest Subcutaneous Tissue and Fascia, Open Approach (ICD-10-PCS; 2019-02-16)
DX: I48.4 Atypical atrial flutter (principal); I50.23 Acute on chronic systolic (congestive) heart failure; I50.22 Chronic systolic (congestive) heart failure; I48.19 Other persistent atrial fibrillation; I11.0 Hypertensive heart disease with heart failure; I25.5 Ischemic cardiomyopathy; I25.10 Atherosclerotic heart disease of native coronary artery without angina pectoris; E78.5 Hyperlipidemia, unspecified; E11.9 Type 2 diabetes mellitus without complications; Z86.73 Personal history of transient ischemic attack (TIA), and cerebral infarction without residual deficits; Z95.1 Presence of aortocoronary bypass graft; Z82.49 Family history of ischemic heart disease and other diseases of the circulatory system; Z87.891 Personal history of nicotine dependence; Z95.810 Presence of automatic (implantable) cardiac defibrillator
CPT/HCPCS: 33225; 33264; 36415; 71045; 75820; 80048; 85025; 85027; 93005; 93451; 93640; 97166; A4565; C1758; C1769; C1882; C1887; C1893; C1900; J0360; J0690; J1200; J1580; J1644; J1720; J2250; J3010; J3490; Q9967

== ENCOUNTER → 2023-09-16 | Outpatient (CLI) | payer BC ==
[~2023-09-16] MED LIST changes: -APIX2.5T MT; +BARIUM SULFATE 176 GM SUSP.RECON ONE; +CARV25TA47 MT; -COR12 PO; +EZ-HD SUSPENSION(BARIUM SULFATE 340GM) PO ONE; -HYDR-4135 PO; +HYDR50TA40 PO; +ISOS1TAB2 MT; +POTA-205 MT; +SACU1TAB7 MT; +SIMETHICONE/SOD BICARB/CIT AC 1 EACH GRAN.EF.PK ONE; +SPIR25TA6 MT; +[UNRECOGNIZED DRUG - OTHER]
== END | disposition home or self-care (01) ==
LOC: RAD 08:17
PROVIDERS: ATTEND Internal Medicine
DX: R13.10 Dysphagia, unspecified (principal)
CPT/HCPCS: 74220; J7517